=== PATIENT | male | born 1990 | race Caucasian/White ===

== ENCOUNTER 2019-08-26 06:53 | Emergency (ER) | payer OTHER ==
[~2019-08-26] VITALS: Ht 177.8 cm; Wt 88.5 kg
[2019-08-26 07:25] VITALS: BP_SYST 117
--- NOTE | 2019-08-26 08:16 | NUR ---
Patient to ER bed 4 to gown for evaluation. Side rails up. Report given to KIRSTIN CABRERA
--- NOTE | 2019-08-26 08:20 | NUR ---
Patient presents to ER C/O Left ankle pain. Patient A&Ox4, ambulatory to ER, afebrile, skin pink and warm, pain 03/16 left ankle, denies N/V/D. Patient states left ankle w/o trauma or injury pain since last night 03/16 with weight bearing, but pain initially started 2 weeks ago.
--- NOTE | 2019-08-26 08:23 | NUR ---
ER Dr. Lay at bedside examining patient.
[2019-08-26 08:35] VITALS: BP_SYST 119
--- NOTE | 2019-08-26 08:35 | NUR ---
Patient given written and verbal discharge instructions and verbalizes understanding. ER MD discussed with patient the results and treatment provided. Patient in stable condition. ID arm band removed. Rx of colchicine, naprosyn, allopurinol given. Patient educated on pain management and to follow up with PMD. Pain Scale 5/10 tolerable for patient. Opportunity for questions provided and answered. Medication side effect fact sheet provided.
[2019-08-26] MEDS ORDERED: KETOROLAC TROMETHAMINE 60 MG/2 ML VIAL IM ONE (08:44)
== END 2019-08-26 08:35 | disposition home or self-care (01) ==
LOC: SED 06:53
DX: M10.9 Gout, unspecified (principal)
CPT/HCPCS: 73610; 99283; J1885